=== PATIENT | female | born 2000 | race Caucasian/White ===

== ENCOUNTER 2019-09-29 19:21 | Emergency (ER) | payer OTHER ==
[2019-09-29 19:40] VITALS: BP 137/82
[2019-09-29] MEDS ORDERED: Ibuprofen TAB* 400 MG PO ONE (20:33)
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
== END 2019-09-29 20:43 | disposition home or self-care (01) ==
LOC: UCEAST 19:21
DX: S16.1XXA Strain of muscle, fascia and tendon at neck level, initial encounter (principal); V49.40XA Driver injured in collision with unspecified motor vehicles in traffic accident, initial encounter; Y92.9 Unspecified place or not applicable
CPT/HCPCS: 99203; A9270-GY; G0463